=== PATIENT | female | born 2000 | race Caucasian/White ===

== ENCOUNTER 2019-08-10 02:39 | Emergency (ER) | payer OTHER ==
[~2019-08-10] VITALS: Ht 177.8 cm; Wt 54.4 kg
[2019-08-10 02:39] VITALS: BP 128/50
[2019-08-10] MEDS ORDERED: IBUPROFEN 600 MG TABLET PO ONE ×2 (03:15→03:30)
--- NOTE | 2019-08-10 03:15 | NUR ---
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
--- NOTE | 2019-08-10 04:10 | NUR ---
ARTIS SPLINT APPLIED BY PAPERHANGER
--- NOTE | 2019-08-10 04:24 | NUR ---
Patient discharged in custody in stable condition. Written and verbal after care instructions given. Patient verbalizes understanding of instruction.
== END 2019-08-10 04:25 | disposition home or self-care (01) ==
LOC: ER 02:39
DX: S62.316A Displaced fracture of base of fifth metacarpal bone, right hand, initial encounter for closed fracture (principal); W22.01XA Walked into wall, initial encounter; Y93.89 Activity, other specified; Y92.89 Other specified places as the place of occurrence of the external cause; Y99.8 Other external cause status
CPT/HCPCS: 73130-TC